=== PATIENT | male | born 1990 | race Caucasian/White ===

== ENCOUNTER 2020-06-27 19:59 | Emergency (ER) | payer OTHER ==
[2020-06-27] MEDS ORDERED: IBUPROFEN800 MG PO (21:21)
[2020-06-27] MEDS ORDERED: NORCO 5-325 TA1 EACH PO (21:21)
[2020-06-27] MEDS ORDERED: CEPHALEXIN500 M1 PO (21:21)
== END 2020-06-27 21:42 | disposition home or self-care (01) ==
LOC: FER 19:59
DX: S00.05XA Superficial foreign body of scalp, initial encounter (principal); F17.200 Nicotine dependence, unspecified, uncomplicated; Z23 Encounter for immunization; W45.8XXA Other foreign body or object entering through skin, initial encounter; Y92.830 Public park as the place of occurrence of the external cause
CPT/HCPCS: 90471; 90715; 99283